=== PATIENT | female | born 1970 | race African-American/Black ===

== ENCOUNTER 2024-01-12 04:46 | Day surgery (SDC) | payer OTHER ==
[2024-01-11 15:13] VITALS: BMI 35.7
[2024-01-12] MEDS ORDERED: DEXAMETHASONE SOD PHOSPHATE 10 MG/1 ML VIAL ONE (07:21)
[2024-01-12] MEDS ORDERED: LIDOCAINE HCL/PF 1% SDV 5ML VIAL ONE (07:21)
[2024-01-12 11:18] VITALS: RESP 18
[2024-01-12] MEDS: LIDOCAINE HCL 1% PRESERVATIVE FREE - 30ML VIAL IJ ONE (13:56)
[2024-01-12] MEDS: IOHEXOL 180 MG/1 ML ML IJ ONE (13:56)
[2024-01-12] MEDS: DEXAMETHASONE SOD PHOSPHATE 10 MG/1 ML VIAL IVPUSH ONE (13:56)
[2024-01-12 15:19] VITALS: BP 131/76; PULSE 62; TEMP 98.2
== END 2024-01-12 14:52 | disposition home or self-care (01) ==
LOC: JASU-SURG 04:46
PROVIDERS: ATTEND Pain Medicine Pain Medicine
PROC: 3E0R3BZ Introduction of Anesthetic Agent into Spinal Canal, Percutaneous Approach (ICD-10-PCS; 2024-01-12)
PROC: 3E0R33Z Introduction of Anti-inflammatory into Spinal Canal, Percutaneous Approach (ICD-10-PCS; principal; 2024-01-12 12:45)
DX: M54.16 Radiculopathy, lumbar region (principal)
CPT/HCPCS: 76000-TC-FY; J1100

== ENCOUNTER 2024-04-05 04:07 | Day surgery (SDC) | payer OTHER ==
[2024-04-02 10:03] VITALS: BMI 35.7
[2024-04-05] MEDS ORDERED: LIDOCAINE HCL/PF 1% SDV 5ML VIAL ONE (07:10)
[2024-04-05] MEDS ORDERED: DEXAMETHASONE SOD PHOSPHATE 10 MG/1 ML VIAL ONE (07:10)
[2024-04-05] MEDS ORDERED: ACETAMINOPHEN 500 MG TABLET (FP) PO PRN (08:35)
[2024-04-05 08:36] VITALS: RESP 18; TEMP 97.8
[2024-04-05] MEDS: IOHEXOL 180 MG/1 ML ML IJ ONE (09:03)
[2024-04-05] MEDS: LIDOCAINE 1% P/F 10 MG/ML VIAL INF ONE ×2 (09:04)
[2024-04-05] MEDS: DEXAMETHASONE SOD PHOSPHATE 10 MG/1 ML VIAL IVPUSH ONE (09:04)
[2024-04-05 10:26] VITALS: BP 145/69; PULSE 70
== END 2024-04-05 09:50 | disposition home or self-care (01) ==
LOC: JASU-SURG 04:07
PROVIDERS: ATTEND Pain Medicine Pain Medicine
PROC: 3E0R3BZ Introduction of Anesthetic Agent into Spinal Canal, Percutaneous Approach (ICD-10-PCS; 2024-04-05)
PROC: 3E0R33Z Introduction of Anti-inflammatory into Spinal Canal, Percutaneous Approach (ICD-10-PCS; principal; 2024-04-05 09:03)
DX: M54.16 Radiculopathy, lumbar region (principal)
CPT/HCPCS: 76000-TC-FY; J1100